=== PATIENT | female | born 1960 | race Asian ===

== ENCOUNTER → 2018-09-21 | Outpatient (CLI) | payer OTHER | LOC: CLAB 09:07 → EDSTATUS 09:08 → CIMAGING 09:09 | PROVIDERS: ATTEND Family Medicine | DX: M79.641 Pain in right hand (principal); G56.00 Carpal tunnel syndrome, unspecified upper limb; M15.1 Heberden's nodes (with arthropathy) | CPT/HCPCS: 73130-PO ==